=== PATIENT | female | born 1945 | race Caucasian/White ===

== ENCOUNTER 2017-10-12 17:04 | Emergency (ER) | payer MEDICARE, BC ==
[~2017-10-12] VITALS: Ht 157.5 cm; Wt 75.0 kg
[~2017-10-12 17:04] MED LIST: CALCIUM + D600 MG PO; DITROPAN5 MG/TA1 PO; EXCEDRIN PO; LORTAB 5 OR; MAXALT10 MG PO; MULTIVITAMIN PO; NEXIUM40 M1 PO; RESTORIL30 MG PO; ULTRAM50 MG PO; XANAX0.25 MG PO
[2017-10-12 18:29] LABS: HEMATOCRIT 31.1 % (37.0-47.0); HEMOGLOBIN 9.9 g/dl (12.0-16.0); IMMATURE GRANULOCYTES 0.4 % (0.0-1.0); MEAN CELL VOLUME 98.7 fL CALC (80.0-100.0); MEAN CORPUSCULAR HGB 31.4 pG CALC (26.0-32.0); MEAN CORPUSCULAR HGB CONC 31.8 g/L CALC (32.0-36.0); NEUT# 7.18 thou/uL (2.00-7.15); RED BLOOD COUNT 3.15 mill/uL (4.20-5.60); RED CELL DISTRI WIDTH 13.9 % (11.5-15.5)
[2017-10-12 18:47] LABS: ALBUMIN 3.5 g/dL (3.2-5.0); ALKALINE PHOSPHATASE 43 u/l (38-126); ANION GAP 17 (6-22 (CALC)); BILIRUBIN, TOTAL 0.2 mg/dL (0.0-1.4); BUN 27 mg/dL (8-23); BUN/CREATININE RATIO 37 (12-20 (CALC)); CALCIUM 8.4 mg/dL (8.4-10.2); CARBON DIOXIDE 21 mmol/l (22-30); CHLORIDE 110 mmol/l (95-108); CREATININE 0.7 mg/dL (0.5-1.0); GFR > 60 ML/MIN (>=60 (CALC)); GFR FOR AFR.AMER. > 60 ML/MIN (>=60 (CALC)); GLUCOSE 141 mg/dL (82-115); POTASSIUM 3.8 mmol/l (3.5-5.1); PROTHROMBIN TIME 11.1 SECONDS (9.0-12.5); SGOT/AST 21 u/l (9-36); SGPT/ALT 25 u/l (11-66); SODIUM 144 mmol/l (137-146)
[2017-10-12 19:40] VITALS: BP 139/69
== END 2017-10-12 19:56 | disposition short-term general hospital (02) ==
LOC: ED 17:04
PROVIDERS: Emergency Medicine
DX: K92.2 Gastrointestinal hemorrhage, unspecified (principal); I10 Essential (primary) hypertension; F32.9 Major depressive disorder, single episode, unspecified
CPT/HCPCS: S0164